=== PATIENT | male | born 1985 | race Caucasian/White ===

== ENCOUNTER → 2024-07-14 09:47 | Outpatient (REF) | payer BC, SELFPAY ==
[2024-07-14 11:01] LABS: ALT (SGPT) 49 U/L (0-50); AST (SGOT) 40 U/L (17-59); Alkaline Phosphatase 50 U/L (38-126); Blood Urea Nitrogen 13 mg/dl (9-20); Calcium 9.9 mg/dl (8.4-10.2); Carbon Dioxide 29 mmol/L (22-30); Chloride 103 mmol/L (98-107); Glucose 104 mg/dl (70-99); HDL Cholesterol 71 mg/dl; LDL Cholesterol, Calculated 111 mg/dl; Lithium 0.7 mmol/L (0.6-1.2); Potassium 4.7 mmol/L (3.5-5.1); Sodium 139 mmol/L (135-145); Total Bilirubin 0.7 mg/dl (0.2-1.3); Total Cholesterol 190 mg/dl (50-199); Total Protein 7.4 g/dl (6.3-8.2); Triglyceride 43 mg/dl (10-149); Very Low Density Lipoprotein 8 mg/dl (0-30); eGFR > 60.00
[2024-07-14 11:29] LABS: TSH 1.79 uIU/ml (0.47-4.68)
[2024-07-14 13:12] LABS: Glycohemoglobin (HgbA1c) 4.9 % (4.0-5.6)
== END ==
LOC: REG 09:47
PROVIDERS: ATTENDING PHYSICIAN Psychiatry & Neurology Forensic Psychiatry
DX: Z79.899 Other long term (current) drug therapy (principal); Z51.81 Encounter for therapeutic drug level monitoring
CPT/HCPCS: 36415; 80053; 80061; 80178; 83036; 84443